=== PATIENT | female | born 1965 | race Caucasian/White ===

== ENCOUNTER 2019-12-12 14:38 | Emergency (ER) | payer OTHER ==
[~2019-12-12] VITALS: Ht 172.7 cm; Wt 86.5 kg
[~2019-12-12 14:38] MED LIST: AMBERIN PO; HYDROCODON-ACE1 EAC7 PO; HYDROCODONE-AP1 EAC6 PO; IBUPROFEN 600600 M1 PO; LEXAPRO20 MG PO; MULTIVITAMINS PO; TUMS PO; [UNRECOGNIZED DRUG - OTHER] PO
[2019-12-12] MEDS ORDERED: OXYCODONE HCL 55 MG PO (15:08)
[2019-12-12] MEDS ORDERED: ZOFRAN ODT4 MG PO (15:08)
[2019-12-12] MEDS ORDERED: TORADOL 10 MG T10 MG PO (15:08)
[2019-12-12 15:14] LABS: BE 2.7 mmol/L (-2 to +3); PCO2 30.5 mmHg (35.0-45.0); PO2 67.5 mmHg (75.0-100.0)
[2019-12-12 15:26] LABS: ABSOLUTE BASOPHILS 0.1 thou/uL (0.0-0.2); ABSOLUTE EOSINOPHILS 0.1 thou/uL (0.0-0.7); ABSOLUTE LYMPHOCYTES 0.7 thou/uL (0.8-5.3); ABSOLUTE MONOCYTES 0.3 thou/uL (0.0-1.2); ABSOLUTE NEUTROPHILS 5.7 thou/uL (1.6-8.1); BASOPHILS 0.8 %; EOSINOPHILS 0.7 %; HEMATOCRIT 32.5 % (37.0-47.0); HEMOGLOBIN 10.5 gm/dL (12.0-15.0); LYMPHOCYTES 10.4 %; MCH 19.9 pg (26.0-34.0); MCHC 32.2 g/dL (28.0-37.0); MCV 61.8 fL (80.0-100.0); MONOCYTES 4.3 %; MPV 9.6 fl. (7.2-11.1); NUCLEATED RBCS 0 /100WBC; PLATELET COUNT* 285 thou/uL (150-400); POLYS 83.8 %; RBC 5.26 mil/uL (4.20-5.00); RDW-CV 15.6 % (10.5-14.5); WBC 6.8 thou/uL (4.0-11.0)
[2019-12-12 15:28] LABS: URINE BILIRUBIN NEGATIVE (Negative); URINE BLOOD NEGATIVE (Negative); URINE CLARITY CLEAR; URINE COLOR YELLOW; URINE GLUCOSE-RANDOM NEGATIVE (Negative); URINE KETONES NEGATIVE (Negative); URINE LEUKOCYTES-REFLEX NEGATIVE (Negative); URINE NITRITE-REFLEX NEGATIVE (Negative); URINE PROTEIN NEGATIVE (Negative)
[2019-12-12 15:37] LABS: CALCIUM 9.3 mg/dL (8.5-10.1); CREATININE 1.1 mg/dL (0.6-1.3); POTASSIUM 3.7 mmol/L (3.5-5.1)
[2019-12-12 15:41] LABS: MAGNESIUM 1.5 mg/dL (1.8-2.4); TOTAL BILIRUBIN 0.9 mg/dL (<0.1-1.0); TOTAL PROTEIN 7.9 g/dL (6.4-8.2)
[2019-12-12 15:45] LABS: PLATELET ESTIMATE ADEQUATE
[2019-12-12 15:45] LABS: INFLUENZA A ANTIGEN Negative (Negative); INFLUENZA B ANTIGEN Negative (Negative)
[2019-12-12 15:46] LABS: ANISOCYTOSIS 1+; HYPOCHROMASIA 1+; MICROCYTES 1+
[2019-12-12 15:59] LABS: AMP/METHAMP Negative (Negative); BARBITURATES Negative (Negative); BENZODIAZEPINES Negative (Negative); COCAINE Negative (Negative); METHADONE Negative (Negative); OPIATES Negative (Negative); PCP Negative (Negative); THC Negative (Negative)
[2019-12-12 17:19] VITALS: BP 121/78
--- NOTE | 2019-12-13 11:33 | EKG ---
[place] [address] ELECTROCARDIOGRAM REPORT Name: JEY GREEN Room: [facility]#: [id number] Admission: 12/12/19 Attend Phys: Discharge: 12/12/19 Date of : 61 Date of Service: 12/12/19 1441 Report #: [id number] THIS REPORT FOR: //name// [facility] ED Test Date: 2019-12-12 Test Time: 14:41:12 Pat Name: JEY GREEN Department: Room: Gender: F Sales Floor Associate: : [id number] Requested By: Tamara Moran Order Number: [id number] Devonte MD: Ugo Christy Measurements Intervals [place] Rate: 119 P: 58 AR: 139 QRS: 19 QRSD: 78 T: 61 QT: 337 QTc: 475 Interpretive Statements Sinus tachycardia Borderline T wave abnormalities No previous ECG available for comparison Electronically Signed On 12-13-2019 11:32:25 REVIEW CONSULTANT by Ugo Christy [email or web address] <ELECTRONICALLY SIGNED> By: Ugo Christy MD, [facility] 12/13/19 1132 1441 1441 Ugo Christy MD, FACC /EPI
== END 2019-12-12 17:19 | disposition home or self-care (01) ==
LOC: M.ERS 14:38
PROVIDERS: Personal Emergency Response Attendant
DX: B34.9 Viral infection, unspecified (principal); E86.0 Dehydration; K21.9 Gastro-esophageal reflux disease without esophagitis; F32.9 Major depressive disorder, single episode, unspecified; Z85.828 Personal history of other malignant neoplasm of skin; Z90.710 Acquired absence of both cervix and uterus; Z88.5 Allergy status to narcotic agent; Z88.0 Allergy status to penicillin